=== PATIENT | female | born 1945 | race Caucasian/White ===

== ENCOUNTER 2020-07-08 06:21 | Outpatient (REF) | payer MEDICARE, MEDICAID, SELFPAY ==
[2020-07-08 07:29] LABS: MANUAL DIFF FLAG NO
[2020-07-08 07:39] LABS: Basophils Percent Auto 0.3 % (0-2); Eosinophils Absolute Auto 0.2 X10*3/uL (0.0-0.4); Eosinophils Percent Auto 3.6 % (0-4); Hematocrit 42.6 % (37-47); Hemoglobin 14.1 g/dl (12.0-16.0); Imm Gran Abs Auto 0.01 X10*3/uL (0.00-0.03); Imm Gran Pct Auto 0.2 % (0.0-0.4); Lymphocytes Absolute Auto 2.1 X10*3/uL (1.2-4.9); Lymphocytes Percent Auto 33.2 % (20-40); Mean Corpuscular HGB Conc 33.1 g/dl (31.0-35.0); Mean Corpuscular Hemoglobin 28.7 pg (27.0-33.0); Mean Corpuscular Volume 86.8 fL (80-98); Monocytes Absolute Auto 0.4 X10*3/uL (0.1-1.2); Monocytes Percent Auto 6.8 % (2-11); Neutrophils Absolute Auto 3.6 X10*3/uL (2.0-8.3); Neutrophils Percent Auto 55.9 % (45-73); Platelet Count 220 X10*3/uL (160-400); Red Blood Count 4.91 X10*6/uL (4.20-5.50); Red Cell Distribution Width 12.3 % (11.0-16.0); White Blood Count 6.4 X10*3/uL (4.8-10.8)
[2020-07-08 07:57] LABS: Glucose Urine UA NEG (NEG); Leukocyte Esterase Urine NEG (NEG); Nitrite Urine NEG (NEG); Urine Blood 2+ (NEG); Urine Ketones NEG (NEG); Urine Protein NEG (NEG-TRACE)
[2020-07-08 07:58] LABS: Appearance Urine CLEAR; Color Urine YELLOW
[2020-07-08 08:03] LABS: Squamous Epithelial Cell Urine 1+ /LPF; WBC Urine 0 /HPF (0-4)
[2020-07-08 08:16] LABS: Alanine Aminotransferase 18 U/L (0-31); Albumin Level 4.4 g/dL (3.5-5.0); Alkaline Phosphatase 63 U/L (39-117); Anion Gap 12 (12-20); Aspartate Amino Transferase 17 U/L (5-31); Bilirubin Total 0.6 mg/dL (0.0-1.0); Blood Urea Nitrogen 20 mg/dL (9-16); Calcium 9.4 mg/dL (8.4-10.2); Carbon Dioxide 29 mmol/L (22-29); Chloride 102 mmol/L (96-108); Cholesterol 172 mg/dL; Estimated Glomerular Filt Rate > 60; Glucose Fasting 99 mg/dL (60-99); HDL Cholesterol 45 mg/dL; LDL Cholesterol Calculated 99 mg/dl; Potassium 4.3 mmol/L (3.3-5.1); Sodium 139 mmol/L (135-145); Total Protein 6.7 g/dL (6.5-8.0); Triglycerides 141 mg/dL
[2020-07-08 08:52] LABS: Thyroid Stimulating Hormone 2.67 uIU/mL (0.32-4.0)
== END 2020-07-08 06:22 | disposition home or self-care (01) ==
LOC: HO.LAB 06:21
PROVIDERS: PCP Internal Medicine; Visit Provider Internal Medicine
DX: I10 Essential (primary) hypertension (principal); M81.0 Age-related osteoporosis without current pathological fracture; E78.5 Hyperlipidemia, unspecified
CPT/HCPCS: 36415; 80053; 80061; 81001; 84443; 85025

== ENCOUNTER 2020-09-24 10:59 | Outpatient (REF) | payer MEDICARE, MEDICAID, SELFPAY ==
--- NOTE | ~2020-09-24 | XR_ITS ---
EXAMINATION: XR HAND, RIGHT CLINICAL INFORMATION: Superficial foreign body of unspecified finger COMPARISON: None TECHNIQUE: PA, lateral, and oblique views of the right hand. FINDINGS: There is no visible acute fracture, dislocation or subluxation seen. No radiopaque foreign body seen. There is small circumferential sclerotic density with central lucency in the distal ulna. Question normal variation versus intraosseous Dale's abscess or lipoma. There are no previous exam available for comparison. XR/XR hand RT min 3V IMPRESSION: No acute fracture or dislocation. No radiopaque foreign body seen. Small sclerotic round lesion in the distal ulna, question normal variation, intraosseous Dale's abscess or intraosseous lipoma.
== END 2020-09-24 11:00 | disposition home or self-care (01) ==
LOC: HO.HMGCLDS 10:59
PROVIDERS: PCP Internal Medicine; Visit Provider Nurse Practitioner Family
DX: S60.450A Superficial foreign body of right index finger, initial encounter (principal); X58.XXXA Exposure to other specified factors, initial encounter; Y93.9 Activity, unspecified; Y92.9 Unspecified place or not applicable; Y99.8 Other external cause status
CPT/HCPCS: 73130

== ENCOUNTER 2020-11-21 16:07 | Emergency (ER) | payer OTHER, SELFPAY ==
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
[2020-11-21 16:40] VITALS: BP 140/90; BP 170/78; PULSE 76; PULSE 86; RESP 18; TEMP 36.7; O2SAT 96; O2SAT 98; BMI 20.7
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
[2020-11-21] MEDS: Acetaminophen 325 MG TABLET 650 MG PO (19:09)
== END 2020-11-21 19:16 | disposition home or self-care (01) ==
PROVIDERS: Emergency Provider Internal Medicine; PCP Internal Medicine
DX: S16.1XXA Strain of muscle, fascia and tendon at neck level, initial encounter (principal); I10 Essential (primary) hypertension; Z86.73 Personal history of transient ischemic attack (TIA), and cerebral infarction without residual deficits; Z79.82 Long term (current) use of aspirin; Z79.899 Other long term (current) drug therapy; V89.2XXA Person injured in unspecified motor-vehicle accident, traffic, initial encounter; Y93.9 Activity, unspecified; Y92.410 Unspecified street and highway as the place of occurrence of the external cause; Y99.9 Unspecified external cause status
CPT/HCPCS: 71046; 72125; 99283; 99284

== ENCOUNTER 2021-01-14 08:50 | Outpatient (REF) | payer OTHER, MEDICARE, MEDICAID, SELFPAY ==
--- NOTE | ~2021-01-14 | MM_ITS ---
EXAMINATION: MM SCREENING DIGITAL BREAST TOMOSYNTHESIS, BILATERAL CLINICAL INFORMATION: Screening. Asymptomatic. The lifetime risk of breast cancer based on the Tyrer-Cuzick Model is 7%. COMPARISON: Mammography: 01/09/2020, 01/03/2019, 09/09/2017 TECHNIQUE: Digital breast tomosynthesis is performed in both the craniocaudal and mediolateral oblique views along with computer-aided detection (CAD). Synthesized 2D images are generated from the tomosynthesis. FINDINGS: There are scattered areas of fibroglandular density (ACR BI-RADS breast composition Category b). There are no significant masses, abnormal calcifications, or other abnormalities. No developing density. No significant changes. The axilla and skin contours are unremarkable. MM/MM tomosynthesis screening BI IMPRESSION: No mammographic evidence of malignancy. ASSESSMENT: BI-RADS 1: Negative RECOMMENDATION: Routine annual mammography screening. This patient's information was entered into a reminder system with a target due date for their next mammogram.
== END 2021-01-14 08:51 | disposition home or self-care (01) ==
LOC: HO.MAMMO 08:50
PROVIDERS: Visit Provider Internal Medicine
DX: Z12.31 Encounter for screening mammogram for malignant neoplasm of breast (principal)
CPT/HCPCS: 77063; 77067

== ENCOUNTER 2021-01-16 06:03 | Outpatient (REF) | payer MEDICARE, MEDICAID, SELFPAY ==
[2021-01-16 10:22] LABS: Alanine Aminotransferase 15 U/L (0-31); Albumin Level 4.4 g/dL (3.5-5.0); Alkaline Phosphatase 73 U/L (39-117); Anion Gap 11 (12-20); Aspartate Amino Transferase 17 U/L (5-31); Bilirubin Total 0.9 mg/dL (0.0-1.0); Blood Urea Nitrogen 16 mg/dL (9-16); Carbon Dioxide 27 mmol/L (22-29); Chloride 106 mmol/L (96-108); Cholesterol 157 mg/dL; Estimated Glomerular Filt Rate > 60; Glucose Fasting 97 mg/dL (60-99); HDL Cholesterol 45 mg/dL; LDL Cholesterol Calculated 88 mg/dl; Potassium 4.2 mmol/L (3.3-5.1); Sodium 140 mmol/L (135-145); Total Protein 6.7 g/dL (6.5-8.0); Triglycerides 120 mg/dL
[2021-01-16 10:41] LABS: Vitamin D 25-OH Total 40.7 ng/mL (>30)
== END 2021-01-16 06:04 | disposition home or self-care (01) ==
LOC: HO.LAB 06:03
PROVIDERS: PCP Internal Medicine; Visit Provider Internal Medicine
DX: I10 Essential (primary) hypertension (principal); E78.5 Hyperlipidemia, unspecified; M81.0 Age-related osteoporosis without current pathological fracture
CPT/HCPCS: 36415; 80053; 80061; 82306

== ENCOUNTER 2021-02-04 14:00 | Outpatient (RCR) | payer OTHER, MEDICARE, MEDICAID, SELFPAY ==
--- NOTE | 2021-01-10 16:22 | MHC.PT.EP ---
[facility] [place] Office [place] Office [place] Office [address] [phone] F: [phone] F: [phone] F: [phone] F: [phone] Physical Therapy Plan of Care Date of Evaluation: Date of Surgery: N/A Diagnosis: Cervicalgia Neck Pain Assessment: Pt is a 75yo F who presents to PT s/p [facility] on 11/21/20. She initially had increased neck pain but she reports some improvements over the past few weeks. She presents today with current impairments in discomfort, limited cervical spine ROM all planes, soft tissue restrictions and posture. She is limited functionally by turning her head and ADLs. She is an excellent candidate for skilled PT services in order to address current impairments and to facilitate return to PLOF. Frequency and Duration: The patient will be seen 1x/week, 4 weeks Short Term Goals: Pt will be I with HEP to promote self management of symptoms Pt will improve cervical rotation by 5 deg bilaterally [employer] Attendant Goals: Pt will demonstrate improved, pain-free ROM all planes throughout cervical spine Pt will perform all ADLs without pain or compensation Treatment Plan: Modalities to reduce pain, spasms and effusion. Manual therapy to restore motion and function. Therapeutic exercise to improve strength and flexibility. Neuromuscular re-education for posture and balance. Therapeutic activities to return to functional activities of daily living. Electronically signed by: Andra Fagan, PT, DPT Please sign and return to therapist. Thank you for your referral.
--- NOTE | 2021-02-13 10:24 | MHC.PT.DC ---
[facility] [place] Office [place] Office [place] Office [address] [place] [address] [phone] F: [phone] F: [phone] F: [phone] F: [phone] Physical Therapy Discharge Report Diagnosis: Cervicalgia Neck Pain Date of Surgery: N/A Date of Evaluation: 01/10/21 Date of Discharge: 02/13/21 Treatments to Date: 4 Cancellations to Date: No Shows to Date: Discharge Status: Achieved Goals Improved Function Independent with HEP Discharge Summary: Pt last PT visit was 02/04/21. Pt made excellent progress since SOC and met her STGs and her LTGs. At last visit she had no pain and improved her ROM in all planes throughout cervical spine. She is able to perform ADLs without compensation. She is I with HEP and feels confident transitioning to HEP. Provided pt with printed, updated HEP and RTB on her last visit. Pt reported no further questions or concerns for PT. Pt is being D/C from skilled PT services at this time. Electronically signed by: Andra Fagan, PT, DPT Please sign and return to therapist. Thank you for your referral.
== END 2021-02-13 10:25 | disposition home or self-care (01) ==
LOC: HO.PT 14:00
PROVIDERS: PCP Internal Medicine; Visit Provider Internal Medicine
DX: M54.2 Cervicalgia (principal)
CPT/HCPCS: 97110; 97150; 97161; 97530

== ENCOUNTER → 2021-07-10 08:57 | Outpatient (BNVA) | payer MEDICARE, MEDICAID, SELFPAY | PROVIDERS: PCP Internal Medicine; Referring Provider Internal Medicine; Visit Provider Physician Assistant | DX: K63.5 Polyp of colon (principal) | CPT/HCPCS: 99212 ==

== ENCOUNTER 2022-01-15 08:32 | Day surgery (SDC) | payer OTHER, SELFPAY ==
--- NOTE | 2022-01-14 11:58 | P.CONAN_ITS ---
Documented by User: Donna Landry NP 01/14/22 11:58 HPI - Anesthesia Eval Consult details Narrative: 76yo F for Colonoscopy PMFSH Active Problems Active Problems: All Active Problems (Updated 07/10/21 @ 09:58 by Ericka Hyman PA-C) Colon polyps (Acute) Annual physical exam (Acute) Neck pain (Acute) Foreign body finger (Acute) Osteoporosis (Acute) Hyperlipidemia (Acute) HTN (hypertension) (Acute) Past Medical History Medical History Annual physical exam Colon polyps Hemorrhagic stroke HTN (hypertension) Hyperlipidemia Neck pain Osteoporosis Family History Family History Father Heart problem Mother Hypertension Stroke Colon cancer Sister Breast cancer Maternal Grandfather Colon cancer Surgical History Surgical History Hx of colonoscopy Hx of tonsillectomy Social History Social History Housing: House Alcohol intake: never Patient Tobacco Use Status: Never used Tobacco e-Cigarette/Vaping Use: Never Used Use of substances other than those prescribed or required for medical reasons: No Are you DNR?: No Advance Directives: No Advance Directives Information Provided: Yes Current occupational status: retired [employer] Allergies Allergy/AdvReac Type Severity Reaction Status Date / Time Penicillins [PENICILLINS] Allergy Intermediate HIVES Verified 07/22/21 10:01 Sulfa (Sulfonamide Allergy Intermediate HIVES Verified 07/22/21 10:01 Antibiotics) [SULFA (SULFONAMIDE ANTIBIOTICS)] Home Medications Medication Instructions Recorded Confirmed Last Taken Type aspirin 81 mg tablet,delayed 81 mg PO DAILY 07/16/20 07/22/21 Unknown History release calcium carbonate 600 mg-vitamin tab PO 07/16/20 07/22/21 Unknown History D3 10 mcg (400 unit) chewable tablet (Calcium 600 with Vitamin D3) folic acid 1 mg tablet 1 mg PO DAILY 07/16/20 07/22/21 Unknown History Exam Exam Date and Time: January 14, 2022 115 Assessment and Plan Assessment Anesthesia Assessment: Chart Reviewed Documented by User: Leopoldo White MD 01/15/22 10:12 [facility] Past Medical History Medical History Annual physical exam Colon polyps Hemorrhagic stroke HTN (hypertension) Hyperlipidemia Neck pain Osteoporosis Family History Family History Father Heart problem Mother Hypertension Stroke Colon cancer Sister Breast cancer Maternal Grandfather Colon cancer Family history of problems with anesthesia: No Surgical History Surgical History Hx of colonoscopy Hx of tonsillectomy History of Problems with Anesthesia: No Social History Social History Housing: House Alcohol intake: never Patient Tobacco Use Status: Never used Tobacco e-Cigarette/Vaping Use: Never Used Use of substances other than those prescribed or required for medical reasons: No Are you DNR?: No Advance Directives: No Advance Directives Information Provided: Yes Current occupational status: retired Meds Allergies Allergy/AdvReac Type Severity Reaction Status Date / Time Penicillins [PENICILLINS] Allergy Intermediate HIVES Verified 07/22/21 10:01 Sulfa (Sulfonamide Allergy Intermediate HIVES Verified 07/22/21 10:01 Antibiotics) [SULFA (SULFONAMIDE ANTIBIOTICS)] Home Medications Medication Instructions Recorded Confirmed Last Taken Type aspirin 81 mg tablet,delayed 81 mg PO DAILY 07/16/20 07/22/21 Unknown History release calcium carbonate 600 mg-vitamin tab PO 07/16/20 07/22/21 Unknown History D3 10 mcg (400 unit) chewable tablet (Calcium 600 with Vitamin D3) folic acid 1 mg tablet 1 mg PO DAILY 07/16/20 07/22/21 Unknown History Exam Airway Mallampati Class: II TM Dist: >3cm Neck ROM: Full Partial: Upper Heart: rrr Lungs: clear Assessment and Plan Final Anesthetic Review Family History of Problems with Anesthesia: No History of Problems with Anesthesia: No NPO: Yes ASA Class: III Final Preanesthetic Review: No Changes in Pt Med Stat, Meds/Allgs Chart Reviewed, Consent Obtained/Reviewed and Anes Risks/Benef Reviewed Patient Risk: Intermediate Procedure Risk: Low Anesthetic Plan Anesthetic Plan: MAC: Disposition: Standard PACU
[2022-01-15 09:16] VITALS: BP 183/73; PULSE 75; RESP 16; TEMP 36.4; O2SAT 98; BMI 19.8
--- NOTE | 2022-01-15 09:24 | P.HPSUR_ITS ---
Pre-Procedural Eval Section A Date of Service: 01/15/22 Section B Chief Complaint: screening Relevant Family History (Specify if Yes): Yes Relevant Social History: None Present Medications: see Short Stay Collaborative assessment Medical History: Significant History (Colon polyps Hemorrhagic stroke HTN (hypertension) Hyperlipidemia Neck pain Osteoporosis) History of Previous Operations: Relevant previous surgery/procedure and date(s) (Colon polyps Hemorrhagic stroke HTN (hypertension) Hyperlipidemia Neck pain Osteoporosis) Allergies: Allergies Allergy/AdvReac Type Severity Reaction Status Date / Time Penicillins [PENICILLINS] Allergy Intermediate HIVES Verified 07/22/21 10:01 Sulfa (Sulfonamide Allergy Intermediate HIVES Verified 07/22/21 10:01 Antibiotics) [SULFA (SULFONAMIDE ANTIBIOTICS)] Review of Systems Sugical H&P ROS: Negative: Constitution, Cardiovascular, Respiratory, Neurological, Psychiatric, Hem-Onc, Allergic/Immunologic, Gastrointestinal, Genitourinary, Musculoskeletal, Integumentary, Endocrine and Eyes/Ears/Nose /Throat Exam Surgical H&P Exam: Normal: HEENT, Normal: Heart, Normal: Lungs, Normal: Extremities, Normal: Abdomen, Normal: Skin and Normal: Neurological Plan Diagnosis/Plan: Unchanged I have reviewed the history and physical and performed a pertinent physical examination on my patient. No changes have occurred unless specified.
[2022-01-15] MEDS: Lactated Ringers 1,000 ML 100 ML IVCONT (09:35)
--- NOTE | 2022-01-15 10:41 | P.OP_ITS ---
Operative Note Operative Note Date of Service: 01/15/22 Narrative: Operative Information Procedure Description: Colonoscopy Indication: FH of CRC, Anesthesia: MAC COLONOSCOPY Instrument: Olympus variable stiffness pediatric scope 190L Colonoscopy Monitoring: Vital signs and clinical assessment, continuous EKG monitoring, Pulse oximetry, Carbon Dioxide monitoring and blood pressure monitoring were done throughout the procedure. Colon withdrawal time was 9 minutes. Procedure: The patient was placed in the left lateral decubitis position and pre-procedure medications were administered. After a digital rectal examination of the ano-rectum, the video colonoscope was inserted into the rectum and advanced through the colon to the cecum/TI. The colonoscope was slowly withdrawn in a retrograde panoramic fashion and the colon mucosa was carefully examined including a retroflexed view of the rectum. Findings and interventions are described below. Procedure Difficulty: easy Findings: Terminal Ileum-normal Cecum:normal Ascending Colon: normal Transverse Colon -normal Descending Colon:normal Sigmoid Colon: mild diverticulosis Rectum: Retroflexion with small internal hemorrhoids, grade I Anorectum - normal Colon preparation: [place] Bowel Preparation Scale Right colon; 3 Transverse colon: 3 Left colon; 3 (0 = Unprepared colon segment with mucosa not seen due to solid stool that cannot be cleared. 1 = Portion of mucosa of the colon segment seen, but other areas of the colon segment not well seen due to staining, residual stool and/or opaque liquid. 2 = Minor amount of residual staining, small fragments of stool and/or opaque liquid, but mucosa of colon segment seen well. 3 = Entire mucosa of colon segment seen well with no residual staining, small fragments of stool or opaque liquid) Impression and Post Procedure Diagnosis: internal hemorrhoids diverticular disease Plan: High fiber diet leaflet Avoid straining at stool, epsom salts and sitz bath, anusol supps or cream Repeat Colonoscopy in 5 years if health allows or earlier if clinically indicated Above findings were reviewed with the patient and relevant handouts were provided if indicated.
[2022-01-15 10:46] VITALS: BP 123/62; PULSE 77; RESP 16; TEMP 36.7; O2SAT 96
[2022-01-15 11:01] VITALS: BP 120/66; PULSE 77; RESP 16; TEMP 36.6; O2SAT 99
== END 2022-01-15 11:27 | disposition home or self-care (01) ==
PROVIDERS: PCP Internal Medicine; Visit Provider Internal Medicine Gastroenterology
PROC: 0DJD8ZZ Inspection of Lower Intestinal Tract, Via Natural or Artificial Opening Endoscopic (ICD-10-PCS; CPT 45378; principal; 2022-01-15 10:00)
DX: Z12.11 Encounter for screening for malignant neoplasm of colon (principal); Z80.0 Family history of malignant neoplasm of digestive organs; Z86.010 Personal history of colon polyps; K57.30 Diverticulosis of large intestine without perforation or abscess without bleeding; K64.0 First degree hemorrhoids; I69.898 Other sequelae of other cerebrovascular disease; H53.9 Unspecified visual disturbance; I10 Essential (primary) hypertension; E78.5 Hyperlipidemia, unspecified; M81.0 Age-related osteoporosis without current pathological fracture; M54.2 Cervicalgia; Z79.82 Long term (current) use of aspirin; Z79.899 Other long term (current) drug therapy; Z88.0 Allergy status to penicillin; Z88.2 Allergy status to sulfonamides
CPT/HCPCS: G0105

== ENCOUNTER 2022-01-16 08:49 | Outpatient (REF) | payer OTHER, SELFPAY ==
--- NOTE | ~2022-01-16 | MM_ITS ---
EXAMINATION: MM SCREENING DIGITAL BREAST TOMOSYNTHESIS, BILATERAL CLINICAL INFORMATION: Screening. Asymptomatic. Family history breast cancer, sister. The lifetime risk of breast cancer based on the Tyrer-Cuzick Model is 7%. COMPARISON: Mammography: 01/14/2021, 01/09/2020, 01/03/2019 TECHNIQUE: Digital breast tomosynthesis is performed in both the craniocaudal and mediolateral oblique views along with computer-aided detection (CAD). Synthesized 2D images are generated from the tomosynthesis. FINDINGS: There are scattered areas of fibroglandular density (ACR BI-RADS breast composition Category b). There are no significant masses, abnormal calcifications, or other abnormalities. Parenchymal pattern is similar to prior studies. There is no developing density or architectural abnormality. The axilla and skin contours are unremarkable. No significant changes. MM/MM tomosynthesis screening BI IMPRESSION: No mammographic evidence of malignancy. ASSESSMENT: BI-RADS 1: Negative RECOMMENDATION: Routine annual mammography screening. This patient's information was entered into a reminder system with a target due date for their next mammogram.
== END 2022-01-16 08:50 | disposition home or self-care (01) ==
LOC: HO.MAMMO 08:49
PROVIDERS: Visit Provider Internal Medicine
DX: Z12.31 Encounter for screening mammogram for malignant neoplasm of breast (principal)
CPT/HCPCS: 77063; 77067

== ENCOUNTER → 2022-02-03 09:21 | Outpatient (BNVA) | payer OTHER, SELFPAY | PROVIDERS: PCP Internal Medicine; Referring Provider Internal Medicine; Visit Provider Physician Assistant | DX: K63.5 Polyp of colon (principal); K64.9 Unspecified hemorrhoids; K57.30 Diverticulosis of large intestine without perforation or abscess without bleeding; Z80.0 Family history of malignant neoplasm of digestive organs | CPT/HCPCS: 99212 ==

== ENCOUNTER 2022-06-06 07:01 | Outpatient (REF) | payer OTHER, SELFPAY ==
[2022-06-06 08:06] LABS: Hemoglobin 14.2 g/dl (12.0-16.0); Mean Corpuscular HGB Conc 33.8 g/dl (31.0-35.0); Mean Corpuscular Hemoglobin 29.2 pg (27.0-33.0); Mean Corpuscular Volume 86.2 fL (80.0-98.0); Mean Platelet Volume 10.3 fL (9.4-12.3); Platelet Count 201 X10*3/uL (160-400); Red Blood Count 4.87 X10*6/uL (4.20-5.50); Red Cell Distribution Width 12.4 % (11.0-16.0); White Blood Count 5.9 X10*3/uL (4.8-10.8)
[2022-06-06 08:18] LABS: Appearance Urine Clear; Color Urine Yellow; Glucose Urine UA Negative (Negative); Leukocyte Esterase Urine Negative (Negative); Nitrite Urine Negative (Negative); PH 6.5 (5.0-9.0); UMIC TRIGGER UACC YES; Urine Blood Small (1+) (Negative); Urine Ketones Negative (Negative); Urine Protein Negative (Neg-Trace)
[2022-06-06 09:04] LABS: Alanine Aminotransferase 19 U/L (0-31); Albumin Level 4.2 g/dL (3.5-5.0); Alkaline Phosphatase 69 U/L (39-117); Anion Gap 10 (12-20); Aspartate Amino Transferase 19 U/L (5-31); Bilirubin Total 0.6 mg/dL (0.0-1.0); Blood Urea Nitrogen 18 mg/dL (9-16); Calcium 9.5 mg/dL (8.4-10.2); Carbon Dioxide 27 mmol/L (22-29); Chloride 106 mmol/L (96-108); Cholesterol 174 mg/dL; Estimated Glomerular Filt Rate > 60; Glucose Fasting 89 mg/dL (60-99); HDL Cholesterol 40 mg/dL; LDL Cholesterol Calculated 106 mg/dl; Potassium 4.3 mmol/L (3.3-5.1); Sodium 139 mmol/L (135-145); Total Protein 6.6 g/dL (6.5-8.0); Triglycerides 141 mg/dL
[2022-06-06 09:23] LABS: TSH reflex Free T4 2.73 uIU/mL (0.32-4.0); Vitamin D 25-OH Total 39.2 ng/mL (>30)
[2022-06-06 10:03] LABS: Bacteria Urine None Seen (None Seen); Hyaline Casts Urine 0-2 /LPF (0-2); Squamous Epithelial Cell Urine 0-2 /HPF (0-2); WBC Urine 0-5 /HPF (0-5)
== END 2022-06-06 07:02 | disposition home or self-care (01) ==
LOC: HO.LAB 07:01
PROVIDERS: PCP Internal Medicine; Visit Provider Internal Medicine
DX: Z00.00 Encounter for general adult medical examination without abnormal findings (principal); E78.5 Hyperlipidemia, unspecified; I10 Essential (primary) hypertension
CPT/HCPCS: 36415; 80053; 80061; 81001; 82306; 84443; 85027

== ENCOUNTER 2022-12-14 08:28 | Outpatient (AMB) | payer OTHER, SELFPAY ==
--- NOTE | 2022-12-14 08:34 | MHC.PC.OV ---
Vital Signs 12/14/22 08:35 Height 5 ft 1 in Weight 102 lb BMI 19.3 BP 120/66 Blood Pressure Location Lt brachial Position Sitting Pulse 64 Pulse Source Pulse Oximeter Pulse Oximetry (%) 98 Oxygen Delivery Method Room Air Intake Visit Reasons: 6m follow up Intake Note: Pt is here today for 6 months follow up visit Allergies Penicillins [PENICILLINS] Allergy (Intermediate, Verified 12/14/22 08:36) HIVES Sulfa (Sulfonamide Antibiotics) [SULFA (SULFONAMIDE ANTIBIOTICS)] Allergy (Intermediate, Verified 12/14/22 08:36) HIVES Medication List - Last Reconciled 12/14/22 by Melly Ferreira MD aspirin 81 mg PO DAILY atenolol 25 mg (1/2 x 50 mg) PO BID calcium carbonate-vitamin D3 600 mg-10 mcg (400 unit) (Calcium 600 with Vitamin D3) tabs PO folic acid 1 mg PO DAILY simvastatin 10 mg PO BEDTIME Tobacco use date assessed: 12/14/22 Fall risk assessment: No Falls in past year Last assessed Fall Risk: 12/14/22 Dental Screening Dental Screen Date: 12/14/22 Did you have a dental visit in the last 12 months?: Yes Did you have a dental problem in the last 6 months where you did not have access to dental care?: No Was dental information given to patient?: Patient has dentist HPI 6m follow up HPI Details Pt presents for f/u HTN, hyperlipid, stable on meds. PFSH Medical History Annual physical exam Colon polyps Hemorrhagic stroke HTN (hypertension) Hyperlipidemia Neck pain Osteoporosis Surgical History Hx of colonoscopy Hx of tonsillectomy Family History Father Heart problem Mother Hypertension Stroke Colon cancer Sister Breast cancer Maternal Grandfather Colon cancer Social History Housing: House Alcohol intake: never Patient Tobacco Use Status: Never used Tobacco e-Cigarette/Vaping Use: Never Used Current occupational status: retired Cognitive needs: No Hearing needs: No Vision needs: Yes Questionnaire Thrive Questionnaire Date Thrive assessed: 06/18/22 AUDIT C Alcohol Use Questionnaire (AUDIT-C) 1. How often do you have a drink containing alcohol?: Never 3. How often do you have six or more drinks on one occasion?: Never Total Score: 0 YAN-7 AMB Questionnaire YAN-7 Date YAN - 7 assessed: 06/18/22 Source: Developed by Drs. Federico Vale, Debra Good, Hill Hunter and colleagues, with an educational vamsi from [employer]. Review of Systems Const All systems reviewed & are unremarkable except as noted in HPI and below Reports no additional complaints Eyes Reports no additional complaints ENT Reports no additional complaints Card Reports no additional complaints Resp Reports no additional complaints GI Reports no additional complaints Reports no additional complaints Physical exam (Primary Care) Vital Signs: Last Vital Signs Pulse 64 12/14/22 08:35 BP 120/66 12/14/22 08:35 Pulse Ox 98 12/14/22 08:35 Oxygen Delivery Method Room Air 12/14/22 08:35 BMI result Body Mass Index 19.3 Tobacco/Smoking Status: Tobacco use Status Tobacco use date assessed 12/14/22 12/14/22 08:39 Patient Tobacco Use Status Never used Tobacco 12/14/22 08:36 e-Cigarette/Vaping Use Never Used 12/14/22 08:36 Thrive Assessment: Date of Thrive Assessment Date Thrive assessed 06/18/22 12/14/22 08:36 Const General: no acute distress HENMT Head: Yes normal to inspection Mouth: Normal oral and palatal mucosa present Eyes General: appearance normal, both eyes and all related structures Neck Neck: Yes no lymphadenopathy and Yes supple Resp Effort & Inspection: normal respiratory effort Auscultation: clear to auscultation bilaterally Cardio Rhythm: regular rhythm Heart sounds: S1 normal heart sound present and S2 normal heart sound present GI Inspection: Yes normal to inspection Palpation (GI): Soft to palpation Auscultation: normal bowel sounds Assessment and Plan Assessment & Plan (1) Osteoporosis: Comment: DEXA in 09/2017, not better after 2years of Prolia, started Reclast 2018 DEXA 01/2020, severe body aches,declined 07/2020 Code(s): M81.0 - Age-related osteoporosis without current pathological fracture Plan: cont vit D and exercise (2) Hyperlipidemia: Code(s): E78.5 - Hyperlipidemia, unspecified Plan: cont statin (3) HTN (hypertension): Code(s): I10 - Essential (primary) hypertension Plan: cont med Orders: Orders Comprehensive Meredith. Panel Fast 6 Months E78.5 - Hyperlipidemia, unspecified, I10 - Essential (primary) hypertension, M81.0 - Age-related osteoporosis without current pathological fracture Lipid Panel 6 Months E78.5 - Hyperlipidemia, unspecified, I10 - Essential (primary) hypertension, M81.0 - Age-related osteoporosis without current pathological fracture TSH reflex Free T4 6 Months E78.5 - Hyperlipidemia, unspecified, I10 - Essential (primary) hypertension, M81.0 - Age-related osteoporosis without current pathological fracture Complete Blood Count Auto Diff 6 Months E78.5 - Hyperlipidemia, unspecified, I10 - Essential (primary) hypertension, M81.0 - Age-related osteoporosis without current pathological fracture Medications: Refilled simvastatin 10 mg PO BEDTIME 90 tabs 3RF Coding Level of Care Code Est Pt Level 3 (28978) Diagnoses Osteoporosis M81.0 Hyperlipidemia E78.5 HTN (hypertension) I10
[2022-12-14 08:35] VITALS: BP 120/66; PULSE 64; O2SAT 98; BMI 19.3
== END 2022-12-14 10:06 | disposition home or self-care (01) ==
PROVIDERS: Visit Provider Internal Medicine
DX: M81.0 Age-related osteoporosis without current pathological fracture (principal); E78.5 Hyperlipidemia, unspecified; I10 Essential (primary) hypertension
CPT/HCPCS: 99213

== ENCOUNTER 2023-01-22 09:11 | Outpatient (REF) | payer OTHER, SELFPAY | END 2023-01-22 09:12 | disposition home or self-care (01) | LOC: HO.MAMMO 09:11 | PROVIDERS: PCP Internal Medicine; Visit Provider Internal Medicine | DX: Z12.31 Encounter for screening mammogram for malignant neoplasm of breast (principal) | CPT/HCPCS: 77063; 77067 ==

== ENCOUNTER → 2023-01-22 09:30 | Outpatient (BNV) | payer OTHER, SELFPAY | PROVIDERS: PCP Internal Medicine; Visit Provider Radiology Diagnostic Radiology | DX: Z12.31 Encounter for screening mammogram for malignant neoplasm of breast (principal) | CPT/HCPCS: 77063; 77067 ==

== ENCOUNTER 2023-06-16 06:37 | Outpatient (REF) | payer MEDICARE, MEDICAID, SELFPAY ==
[2023-06-16 06:51] LABS: MANUAL DIFF FLAG NO
[2023-06-16 07:04] LABS: Basophils Percent Auto 0.6 % (0-2); Eosinophils Absolute Auto 0.4 X10*3/uL (0.0-0.4); Eosinophils Percent Auto 6.7 % (0-4); Hematocrit 42.1 % (37.0-47.0); Hemoglobin 14.4 g/dl (12.0-16.0); Imm Gran Abs Auto 0.02 X10*3/uL (0.00-0.03); Imm Gran Pct Auto 0.3 % (0.0-0.4); Lymphocytes Absolute Auto 1.9 X10*3/uL (1.2-4.9); Lymphocytes Percent Auto 30.8 % (20-40); Mean Corpuscular HGB Conc 34.2 g/dl (31.0-35.0); Mean Corpuscular Hemoglobin 29.2 pg (27.0-33.0); Mean Corpuscular Volume 85.4 fL (80.0-98.0); Mean Platelet Volume 9.7 fL (9.4-12.3); Monocytes Absolute Auto 0.5 X10*3/uL (0.1-1.2); Monocytes Percent Auto 7.2 % (2-11); Neutrophils Absolute Auto 3.4 x10*3/uL (2.0-8.3); Neutrophils Percent Auto 54.4 % (45-73); Platelet Count 212 X10*3/uL (160-400); Red Blood Count 4.93 X10*6/uL (4.20-5.50); Red Cell Distribution Width 12.4 % (11.0-16.0); White Blood Count 6.3 X10*3/uL (4.8-10.8)
[2023-06-16 07:26] LABS: Alanine Aminotransferase 16 U/L (0-31); Albumin Level 4.3 g/dL (3.5-5.0); Alkaline Phosphatase 71 U/L (39-117); Anion Gap 13 (12-20); Aspartate Amino Transferase 18 U/L (5-31); Bilirubin Total 0.6 mg/dL (0.0-1.0); Blood Urea Nitrogen 19 mg/dL (9-16); Calcium 9.8 mg/dL (8.4-10.2); Carbon Dioxide 28 mmol/L (22-29); Chloride 105 mmol/L (96-108); Cholesterol 173 mg/dL (<200); Estimated Glomerular Filt Rate > 60; Glucose Fasting 98 mg/dL (60-99); HDL Cholesterol 51 mg/dL (>40); LDL Cholesterol Calculated 103 mg/dL (<100); Sodium 142 mmol/L (135-145); Total Protein 7.1 g/dL (6.5-8.0); Triglycerides 95 mg/dL (<150)
[2023-06-16 07:55] LABS: TSH reflex Free T4 2.18 uIU/mL (0.32-4.0)
== END 2023-06-16 06:38 | disposition home or self-care (01) ==
LOC: HO.LAB 06:37
PROVIDERS: PCP Internal Medicine; Visit Provider Internal Medicine
DX: E78.5 Hyperlipidemia, unspecified (principal); I10 Essential (primary) hypertension; M81.0 Age-related osteoporosis without current pathological fracture
CPT/HCPCS: 36415; 80053; 80061; 84443; 85025

== ENCOUNTER 2023-06-21 08:15 | Outpatient (AMB) | payer MEDICARE, MEDICAID, SELFPAY ==
[2023-06-21 08:27] VITALS: BP 142/76; PULSE 73; O2SAT 98
--- NOTE | 2023-06-21 08:27 | A.OFFPC_ITS ---
Vital Signs 06/21/23 08:27 Height 5 ft 1 in Weight 106 lb BMI 20.0 BP 142/76 H Blood Pressure Location Lt brachial Position Sitting Pulse 73 Pulse Source Pulse Oximeter Pulse Oximetry (%) 98 Oxygen Delivery Method Room Air Intake Visit Reasons: PE Intake Note: Pt is here today for a PE. Allergies Penicillins [PENICILLINS] Allergy (Intermediate, Verified 06/21/23 08:33) HIVES Sulfa (Sulfonamide Antibiotics) [SULFA (SULFONAMIDE ANTIBIOTICS)] Allergy (Intermediate, Verified 06/21/23 08:33) HIVES Medication List - Last Reconciled 06/21/23 by Melly Ferreira MD aspirin 81 mg PO DAILY atenolol 25 mg (1/2 x 50 mg) PO BID calcium carbonate-vitamin D3 600 mg-10 mcg (400 unit) (Calcium 600 with Vitamin D3) tabs PO folic acid 1 mg PO DAILY simvastatin 10 mg PO BEDTIME Tobacco use date assessed: 06/21/23 Fall risk assessment: No Falls in past year Last assessed Fall Risk: 06/21/23 Dental Screening Dental Screen Date: 06/21/23 Did you have a dental visit in the last 12 months?: Yes Did you have a dental problem in the last 6 months where you did not have access to dental care?: No Was dental information given to patient?: Patient has dentist HPI PE HPI Details Pt presents for PE. PFSH Medical History Colon polyps Annual physical exam Neck pain Hemorrhagic stroke Osteoporosis Hyperlipidemia HTN (hypertension) Surgical History Hx of tonsillectomy Hx of colonoscopy Family History Father Heart problem Mother Hypertension Stroke Colon cancer Sister Breast cancer Maternal Grandfather Colon cancer Social History Housing: House Alcohol intake: never Patient Tobacco Use Status: Never used Tobacco e-Cigarette/Vaping Use: Never Used Current occupational status: retired Cognitive needs: No Hearing needs: No Vision needs: Yes Questionnaire Thrive Questionnaire Date Thrive assessed: 06/18/22 AUDIT C Alcohol Use Questionnaire (AUDIT-C) 1. How often do you have a drink containing alcohol?: Never 3. How often do you have six or more drinks on one occasion?: Never Total Score: 0 YAN-7 AMB Questionnaire YAN-7 Date YAN - 7 assessed: 06/18/22 Source: Developed by Drs. Federico Vale, Debra Good, Hill Hunter and colleagues, with an educational vamsi from [employer] Review of Systems Const All systems reviewed & are unremarkable except as noted in HPI and below Reports no additional complaints Eyes Reports no additional complaints ENT Reports no additional complaints Card Reports no additional complaints Resp Reports no additional complaints GI Reports no additional complaints Reports no additional complaints Physical exam (Primary Care) Vital Signs: Last Vital Signs Pulse 73 06/21/23 08:27 BP 142/76 H 06/21/23 08:27 Pulse Ox 98 06/21/23 08:27 Oxygen Delivery Method Room Air 06/21/23 08:27 BMI result Body Mass Index 20.0 Tobacco/Smoking Status: Tobacco use Status Tobacco use date assessed 06/21/23 06/21/23 08:35 Patient Tobacco Use Status Never used Tobacco 06/21/23 08:35 e-Cigarette/Vaping Use Never Used 06/21/23 08:27 Thrive Assessment: Date of Thrive Assessment Date Thrive assessed 06/18/22 06/21/23 08:27 Const General: no acute distress HENMT Head: Yes normal to inspection Ears: hearing grossly normal bilaterally Face and sinus: Yes normal facial exam Mouth: Normal oral and palatal mucosa present Throat: Yes posterior oropharynx normal Eyes General: appearance normal, both eyes and all related structures Neck Neck: Yes no lymphadenopathy and Yes supple Resp Effort & Inspection: normal respiratory effort Auscultation: clear to auscultation bilaterally Cardio Rhythm: regular rhythm Heart sounds: S1 normal heart sound present and S2 normal heart sound present GI Inspection: Yes normal to inspection Palpation (GI): Soft to palpation Percussion: Yes normal to percussion Auscultation: normal bowel sounds Assessment and Plan Assessment & Plan (1) Microscopic hematuria: Comment: negative urological w/u 2017 Code(s): R31.29 - Other microscopic hematuria Plan: check UA and cytology (2) Annual physical exam: Code(s): Z00.00 - Encounter for general adult medical examination without abnormal findings Plan: Well-balanced diet regular physical activity discussed with the patient. She is up-to-date with the mammogram colonoscopy. (3) Osteoporosis: Comment: DEXA in 09/2017, not better after 2years of Prolia, started Reclast 2018 DEXA 01/2020, severe body aches,declined 07/2020 Code(s): M81.0 - Age-related osteoporosis without current pathological fracture Plan: Continue vitamin-D supplement, weight-bearing exercise discussed with the patient. She declined repeat DEXA (4) Hyperlipidemia: Code(s): E78.5 - Hyperlipidemia, unspecified Plan: Continue statin (5) HTN (hypertension): Code(s): I10 - Essential (primary) hypertension Plan: Blood pressure is elevated. Medication compliance, Low-sodium diet increase physical activity discussed with the patient. Patient will monitor her blood pressure at home and follow-up in 1 month. Orders: Orders UA w Microscopic Today R31.29 - Other microscopic hematuria Urine Cytology Today R31.29 - Other microscopic hematuria Coding Level of Care Code Est Pt Prev Care >65y(13601) Diagnoses Microscopic hematuria R31.29 Annual physical exam Z00.00 Osteoporosis M81.0 Hyperlipidemia E78.5 HTN (hypertension) I10
== END 2023-06-21 09:06 | disposition home or self-care (01) ==
PROVIDERS: Visit Provider Internal Medicine
DX: R31.29 Other microscopic hematuria (principal); Z00.00 Encounter for general adult medical examination without abnormal findings; M81.0 Age-related osteoporosis without current pathological fracture; E78.5 Hyperlipidemia, unspecified; I10 Essential (primary) hypertension
CPT/HCPCS: 99397

== ENCOUNTER 2023-06-21 09:08 | Outpatient (REF) | payer MEDICARE, MEDICAID, SELFPAY ==
[2023-06-21 11:33] LABS: Urine Cytology See Pathology rpt
[2023-06-21 11:44] LABS: Appearance Urine Clear; Color Urine Yellow; Glucose Urine UA Negative (Negative); Leukocyte Esterase Urine Negative (Negative); Nitrite Urine Negative (Negative); Specific Gravity - Urine <= 1.005 (1.005-1.025); UMIC TRIGGER UA YES; Urine Blood Trace (Negative); Urine Ketones Negative (Negative); Urine Protein Negative (Neg-Trace)
[2023-06-21 11:50] LABS: Bacteria Urine None Seen (None Seen); Hyaline Casts Urine 0-2 /LPF (0-2); RBC Urine 0-2 /HPF (0-2); Squamous Epithelial Cell Urine 0-2 /HPF (0-2); WBC Urine 0-5 /HPF (0-5)
== END 2023-06-21 09:09 | disposition home or self-care (01) ==
LOC: HO.HMGCLDS 09:08
PROVIDERS: PCP Internal Medicine; Visit Provider Internal Medicine
DX: R31.29 Other microscopic hematuria (principal)
CPT/HCPCS: 81001; 88112

== ENCOUNTER 2023-07-23 11:02 | Outpatient (AMB) | payer MEDICARE, MEDICAID, SELFPAY ==
[2023-07-23 11:07] VITALS: BP 136/74; PULSE 60; O2SAT 95
--- NOTE | 2023-07-23 11:07 | A.OFFPC_ITS ---
Vital Signs 07/23/23 11:07 Height 5 ft 1 in Weight 106 lb BMI 20.0 BP 136/74 Blood Pressure Location Lt brachial Position Sitting Pulse 60 Pulse Source Pulse Oximeter Pulse Oximetry (%) 95 Oxygen Delivery Method Room Air Intake Visit Reasons: 1M F/U Labs Intake Note: Pt is here today for 1 month follow up visit. Allergies Penicillins [PENICILLINS] Allergy (Intermediate, Verified 07/23/23 11:08) HIVES Sulfa (Sulfonamide Antibiotics) [SULFA (SULFONAMIDE ANTIBIOTICS)] Allergy (Intermediate, Verified 07/23/23 11:08) HIVES Medication List - Last Reconciled 07/23/23 by Melly Ferreira MD aspirin 81 mg PO DAILY atenolol 25 mg (1/2 x 50 mg) PO BID calcium carbonate-vitamin D3 600 mg-10 mcg (400 unit) (Calcium 600 with Vitamin D3) tabs PO folic acid 1 mg PO DAILY simvastatin 10 mg PO BEDTIME Tobacco use date assessed: 06/21/23 HPI 1M F/U Labs HPI Details Patient presents for the follow-up on hypertension she has been monitoring blood pressure at home with the readings between 135/80 to 110/70. Patient has been compliant taking atenolol twice a day. The patient denies headache chest pain or shortness of breath she has been following low salt diet and walking daily for at least a mile. [facility] [place] Medical History Colon polyps Annual physical exam Neck pain Hemorrhagic stroke Osteoporosis Hyperlipidemia HTN (hypertension) Surgical History Hx of tonsillectomy Hx of colonoscopy Family History Father Heart problem Mother Hypertension Stroke Colon cancer Sister Breast cancer Maternal Grandfather Colon cancer Social History Housing: House Alcohol intake: never Patient Tobacco Use Status: Never used Tobacco e-Cigarette/Vaping Use: Never Used Current occupational status: retired Cognitive needs: No Hearing needs: No Vision needs: Yes Questionnaire Thrive Questionnaire Date Thrive assessed: 06/18/22 YAN-7 AMB Questionnaire YAN-7 Date YAN - 7 assessed: 06/18/22 Source: Developed by Drs. Federico Vale, Debra Good, Hill Hunter and colleagues, with an educational vamsi from [facility]. Review of Systems Const All systems reviewed & are unremarkable except as noted in HPI and below Eyes Reports no additional complaints ENT Reports no additional complaints Card Reports no additional complaints Resp Reports no additional complaints GI Reports no additional complaints Reports no additional complaints Physical exam (Primary Care) Vital Signs: Last Vital Signs Pulse 60 07/23/23 11:07 BP 136/74 07/23/23 11:07 Pulse Ox 95 07/23/23 11:07 Oxygen Delivery Method Room Air 07/23/23 11:07 BMI result Body Mass Index 20.0 Tobacco/Smoking Status: Tobacco use Status Tobacco use date assessed 06/21/23 07/23/23 11:11 Patient Tobacco Use Status Never used Tobacco 07/23/23 11:11 e-Cigarette/Vaping Use Never Used 07/23/23 11:11 Thrive Assessment: Date of Thrive Assessment Date Thrive assessed 06/18/22 07/23/23 11:11 Const General: no acute distress HENMT Mouth: Normal oral and palatal mucosa present Eyes General: appearance normal, both eyes and all related structures Resp Effort & Inspection: normal respiratory effort Auscultation: clear to auscultation bilaterally Cardio Rhythm: regular rhythm Heart sounds: S1 normal heart sound present and S2 normal heart sound present Assessment and Plan Assessment & Plan (1) Hyperlipidemia: Code(s): E78.5 - Hyperlipidemia, unspecified Plan: Continue simvastatin (2) HTN (hypertension): Code(s): I10 - Essential (primary) hypertension Plan: Continue current medication low-sodium diet regular exercise , follow-up in 3 months Coding Level of Care Code Est Pt Level 3 (46376) Diagnoses Hyperlipidemia E78.5 HTN (hypertension) I10
== END 2023-07-23 12:27 | disposition home or self-care (01) ==
PROVIDERS: PCP Internal Medicine; Visit Provider Internal Medicine
DX: E78.5 Hyperlipidemia, unspecified (principal); I10 Essential (primary) hypertension
CPT/HCPCS: 99213

== ENCOUNTER 2023-12-07 11:28 | Outpatient (AMB) | payer MEDICARE, MEDICAID, SELFPAY ==
[2023-12-07 11:45] VITALS: BP 124/68; PULSE 61; O2SAT 97; BMI 19.6
--- NOTE | 2023-12-07 11:45 | A.OFFPC_ITS ---
Vital Signs 12/07/23 11:45 Height 5 ft 1 in Weight 104 lb BMI 19.6 BP 124/68 Blood Pressure Location Lt brachial Position Sitting Pulse 61 Pulse Source Pulse Oximeter Pulse Oximetry (%) 97 Oxygen Delivery Method Room Air Intake Visit Reasons: 3M F/U rescheduled Intake Note: Pt is here today for 3 months follow up visit. Allergies Penicillins [PENICILLINS] Allergy (Intermediate, Verified 12/07/23 11:54) HIVES Sulfa (Sulfonamide Antibiotics) [SULFA (SULFONAMIDE ANTIBIOTICS)] Allergy (Intermediate, Verified 12/07/23 11:54) HIVES Medication List - Last Reconciled 12/07/23 by Melly Ferreira MD aspirin 81 mg PO DAILY atenolol 25 mg (1/2 x 50 mg) PO BID calcium carbonate-vitamin D3 600 mg-10 mcg (400 unit) (Calcium 600 with Vitamin D3) tabs PO folic acid 1 mg PO DAILY simvastatin 10 mg PO BEDTIME Tobacco use date assessed: 12/07/23 Fall risk assessment: No Falls in past year Last assessed Fall Risk: 12/07/23 Dental Screening Dental Screen Date: 12/07/23 Did you have a dental visit in the last 12 months?: Yes Did you have a dental problem in the last 6 months where you did not have access to dental care?: No Was dental information given to patient?: Patient has dentist HPI 3M F/U rescheduled HPI Details Pt presents for follow-up on hypertension hyperlipidemia stable on current medications. [facility] Medical History Colon polyps Annual physical exam Neck pain Hemorrhagic stroke Osteoporosis Hyperlipidemia HTN (hypertension) Surgical History Hx of tonsillectomy Hx of colonoscopy Family History Father Heart problem Mother Hypertension Stroke Colon cancer Sister Breast cancer Maternal Grandfather Colon cancer Social History Housing: House Alcohol intake: never Patient Tobacco Use Status: Never used Tobacco e-Cigarette/Vaping Use: Never Used service: No Current occupational status: retired Cognitive needs: No Hearing needs: No Vision needs: Yes Questionnaire PHQ-9 Over the last 2 weeks, how often have you been bothered by any of the following problems? 1. Little interest or pleasure in doing things: not at all 2. Feeling down, depressed, or hopeless: not at all 3. Trouble falling or staying asleep, or sleeping too much: not at all 4. Feeling tired or having little energy: not at all 5. Poor appetite or overeating: not at all 6. Feeling bad about yourself - or that you are a failure or have let yourself or your family down: not at all 7. Trouble concentrating on things, such as reading the newspaper or watching television: not at all 8. Moving or speaking so slowly that other people could have noticed. Or the opposite - being so fidgety or restless that you have been moving around a lot more than usual: not at all 9. Thoughts that you would be better off or of hurting yourself in some way: not at all Total score: 0 Depression Screening Interpretation: Negative Depression Screening Done: Yes Source: Developed by Drs. Federico Vale, Debra Good, Hill Hunter and colleagues, with an educational vamsi from [employer]. Thrive Questionnaire Date Thrive assessed: 12/07/23 I am a: Patient What is your living situation today?: I have a steady place to live Within the past 12 months, did the food you bought not last and you didn't have the money to get more?: Never true Within the past 12 months, did you worry whether your food would run out before you got money to buy more?: Never true Do you have trouble paying for medicines?: No Do you have trouble getting transportation to medical appointments?: No Do you have trouble paying your heating and electricity bill?: No Do you have trouble taking care of your child, family member or friend?: No Do you have trouble with day-to-day activities such as bathing, preparing meals, shopping, managing finances, etc.?: No Are you currently unemployed and looking for a job?: No Are you interested in more education?: No Please select the resources that you would like help with: Housing/Custodial Currently or been in a relationship where the following occur: No concerns reported THRIVE Score: 0 AUDIT C Alcohol Use Questionnaire (AUDIT-C) 1. How often do you have a drink containing alcohol?: Never 3. How often do you have six or more drinks on one occasion?: Never Total Score: 0 YAN-7 AMB Questionnaire YNA-7 Date YAN - 7 assessed: 12/07/23 Feeling nervous, anxious, or on edge: 0 = Not at all Not being able to stop or control worryin = Not at all Worrying too much about different things: 0 = Not at all Trouble relaxin = Not at all Being so restless that it is hard to sit still: 0 = Not at all Becoming easily annoyed or irritable: 0 = Not at all Feeling afraid as if something awful might happen: 0 = Not at all Total YAN-7 score (0-4 normal; 5-9 mild; 10-14 moderate; 15-21 severe): 0 Source: Developed by Drs. Federico Vale, Debra Good, Hill Hunter and colleagues, with an educational vamsi from [employer]. Review of Systems Const All systems reviewed & are unremarkable except as noted in HPI and below Eyes Reports no additional complaints ENT Reports no additional complaints Card Reports no additional complaints Resp Reports no additional complaints GI Reports no additional complaints Reports no additional complaints Physical exam (Primary Care) Vital Signs: Last Vital Signs Pulse 61 12/07/23 11:45 BP 124/68 12/07/23 11:45 Pulse Ox 97 12/07/23 11:45 Oxygen Delivery Method Room Air 12/07/23 11:45 BMI result Body Mass Index 19.6 Tobacco/Smoking Status: Tobacco use Status Tobacco use date assessed 12/07/23 12/07/23 11:56 Patient Tobacco Use Status Never used Tobacco 12/07/23 11:56 e-Cigarette/Vaping Use Never Used 12/07/23 11:45 PHQ-9: PHQ-9 Score PHQ-9: Total score 0 12/07/23 11:57 Depression Screening Interpretation: Negative Thrive Assessment: Date of Thrive Assessment Date Thrive assessed 12/07/23 12/07/23 11:56 Currently or been in a relationship where the following occur: No concerns reported Const General: no acute distress HENMT Face and sinus: Yes normal facial exam Neck Neck: Yes supple Resp Effort & Inspection: normal respiratory effort Auscultation: clear to auscultation bilaterally Cardio Rhythm: regular rhythm Heart sounds: S1 normal heart sound present and S2 normal heart sound present GI Inspection: Yes normal to inspection Palpation (GI): Soft to palpation Percussion: Yes normal to percussion Assessment and Plan Assessment & Plan (1) Hyperlipidemia: Code(s): E78.5 - Hyperlipidemia, unspecified Plan: Continue statin (2) HTN (hypertension): Code(s): I10 - Essential (primary) hypertension Plan: Continue atenolol return in 6 months (3) Vitamin D deficiency: Code(s): E55.9 - Vitamin D deficiency, unspecified Orders: Orders Comprehensive [place]. Panel Fast 6 Months E78.5 - Hyperlipidemia, unspecified, I10 - Essential (primary) hypertension Complete Blood Count Auto Diff 6 Months E78.5 - Hyperlipidemia, unspecified, I10 - Essential (primary) hypertension Lipid Panel 6 Months E78.5 - Hyperlipidemia, unspecified, I10 - Essential (primary) hypertension Vitamin D 25-OH Total 6 Months E55.9 - Vitamin D deficiency, unspecified, E78.5 - Hyperlipidemia, unspecified, I10 - Essential (primary) hypertension Coding Level of Care Code Est Pt Level 3 (21241) Diagnoses Hyperlipidemia E78.5 HTN (hypertension) I10 Vitamin D deficiency E55.9
== END 2023-12-07 12:38 | disposition home or self-care (01) ==
PROVIDERS: PCP Internal Medicine; Visit Provider Internal Medicine
DX: E78.5 Hyperlipidemia, unspecified (principal); I10 Essential (primary) hypertension; E55.9 Vitamin D deficiency, unspecified
CPT/HCPCS: 99213

== ENCOUNTER 2024-01-28 08:54 | Outpatient (REF) | payer MEDICARE, OTHER, SELFPAY ==
--- NOTE | ~2024-01-28 | MM_ITS ---
EXAMINATION: MM SCREENING DIGITAL BREAST TOMOSYNTHESIS, BILATERAL CLINICAL INFORMATION: Screening. Asymptomatic. COMPARISON: Mammography: Comparison is made with available priors TECHNIQUE: Digital breast mammography with tomosynthesis is performed in both the craniocaudal and mediolateral oblique views along with computer-aided detection (CAD). FINDINGS: There are scattered areas of fibroglandular density (ACR BI-RADS breast composition Category b). There are no significant masses, abnormal calcifications, or other abnormalities. MM/MM tomosynthesis screening BI IMPRESSION: No mammographic evidence of malignancy. ASSESSMENT: BI-RADS BI-RADS 1 - Negative RECOMMENDATION: Routine annual mammography screening. 1 year F/U This examination should not preclude the clinical evaluation of a suspicious palpable abnormality. This patient's information was entered into a reminder system with a target due date for their next mammogram. Electronically signed by: Ibis Landry DO 02/09/2024 01:51 PM EDT
== END 2024-01-28 08:55 | disposition home or self-care (01) ==
LOC: HO.MAMMO 08:54
PROVIDERS: PCP Internal Medicine; Visit Provider Internal Medicine
DX: Z12.31 Encounter for screening mammogram for malignant neoplasm of breast (principal)
CPT/HCPCS: 77063; 77067

== ENCOUNTER → 2024-01-28 09:15 | Outpatient (BNV) | payer MEDICARE, MEDICAID, SELFPAY | PROVIDERS: PCP Internal Medicine; Visit Provider Internal Medicine | DX: Z12.31 Encounter for screening mammogram for malignant neoplasm of breast (principal) | CPT/HCPCS: 77063; 77067 ==

== ENCOUNTER 2024-07-01 07:32 | Outpatient (REF) | payer MEDICARE, MEDICAID, SELFPAY ==
[2024-07-01 07:57] LABS: MANUAL DIFF FLAG NO
[2024-07-01 09:07] LABS: Basophils Percent Auto 0.5 % (0-2); Eosinophils Absolute Auto 0.3 X10*3/uL (0.0-0.4); Eosinophils Percent Auto 4.9 % (0-4); Hematocrit 43.4 % (37.0-47.0); Hemoglobin 14.8 g/dl (12.0-16.0); Imm Gran Abs Auto 0.06 X10*3/uL (0.00-0.03); Lymphocytes Absolute Auto 1.5 X10*3/uL (1.2-4.9); Lymphocytes Percent Auto 24.7 % (20-40); Mean Corpuscular HGB Conc 34.1 g/dl (31.0-35.0); Mean Corpuscular Hemoglobin 29.4 pg (27.0-33.0); Mean Corpuscular Volume 86.3 fL (80.0-98.0); Mean Platelet Volume 10.2 fL (9.4-12.3); Monocytes Absolute Auto 0.5 X10*3/uL (0.1-1.2); Monocytes Percent Auto 8.7 % (2-11); Neutrophils Absolute Auto 3.7 x10*3/uL (2.0-8.3); Neutrophils Percent Auto 60.2 % (45-73); Platelet Count 204 X10*3/uL (160-400); Red Blood Count 5.03 X10*6/uL (4.20-5.50); Red Cell Distribution Width 12.4 % (11.0-16.0); White Blood Count 6.1 X10*3/uL (4.8-10.8)
[2024-07-01 10:12] LABS: Alanine Aminotransferase 22 U/L (0-31); Albumin Level 4.2 g/dL (3.5-5.0); Alkaline Phosphatase 68 U/L (39-117); Anion Gap 13 (12-20); Aspartate Amino Transferase 22 U/L (5-31); Bilirubin Total 0.5 mg/dL (0.0-1.0); Blood Urea Nitrogen 19 mg/dL (9-16); Calcium 9.6 mg/dL (8.4-10.2); Carbon Dioxide 24 mmol/L (22-29); Chloride 108 mmol/L (96-108); Cholesterol 170 mg/dL (<200); Estimated Glomerular Filt Rate > 60; Glucose Fasting 83 mg/dL (60-99); HDL Cholesterol 47 mg/dL (>40); LDL Cholesterol Calculated 95 mg/dL (<100); Potassium 4.5 mmol/L (3.3-5.1); Sodium 140 mmol/L (135-145); Total Protein 7.3 g/dL (6.5-8.0); Triglycerides 142 mg/dL (<150)
[2024-07-01 10:31] LABS: Vitamin D 25-OH Total 39.1 ng/mL (>30)
== END 2024-07-01 07:33 | disposition home or self-care (01) ==
LOC: HO.LAB 07:32
PROVIDERS: PCP Internal Medicine; Visit Provider Internal Medicine
DX: E55.9 Vitamin D deficiency, unspecified (principal); I10 Essential (primary) hypertension; E78.5 Hyperlipidemia, unspecified
CPT/HCPCS: 36415; 80053; 80061; 82306; 85025

== ENCOUNTER 2024-07-05 08:06 | Outpatient (AMB) | payer MEDICARE, MEDICAID, SELFPAY ==
--- NOTE | 2024-07-05 08:21 | A.OFFVIS_ITS ---
Intake Vital Signs 07/05/24 08:31 Height 5 ft 1 in Weight 108 lb BMI 20.4 BP 118/66 Blood Pressure Location Lt brachial Position Sitting Respiration 18 Pulse 72 Pulse Source Pulse Oximeter Temp 98.0 F Temp Source Oral Pulse Oximetry (%) 99 Oxygen Delivery Method Room Air Intake Visit Reasons: AWV Allergies Penicillins [PENICILLINS] Allergy (Intermediate, Verified 07/05/24 08:32) HIVES Sulfa (Sulfonamide Antibiotics) [SULFA (SULFONAMIDE ANTIBIOTICS)] Allergy (Intermediate, Verified 07/05/24 08:32) HIVES HPI AWV HPI Details Initiated the conversation about Advanced Directives. Advanced Directives help? patients prepare for current and future decisions about their medical treatment? and place of care. Discussed with patient that it is a process where a patients? current condition and prognosis are reviewed, their wishes for information? regarding their illness are elicited, and likely medical dilemmas are presented? and options discussed. The form can be amended as needed, reviewed yearly and? make changes as needed Initiated the conversation about Advanced Directives. Advanced Directives help? patients prepare for current and future decisions about their medical treatment? and place of care. Discussed with patient that it is a process where a patients? current condition and prognosis are reviewed, their wishes for information? regarding their illness are elicited, and likely medical dilemmas are presented? and options discussed. The form can be amended as needed, reviewed yearly and? make changes as needed IPPE/AWV ? year old presents? for her ? Annual? Wellness Visit, initial visit.? Medical / Social History Reviewed? Past Medical History ?Yes? . ? [place]? of Care / Care Team list updated ?Yes . ? Surgical/Hospitalization? History ?Yes . ? Current Medications? (including OTC and supplements) ?Yes . ? Family History ?Yes? . ? Tobacco? Control form ?Yes . ? AUDIT-C (Alcohol use) form? ?Yes . ? Illicit drug use in Social? History ?Yes . ? Current diagnosis of? depression? ?No ? Appropriate PHQ2/PHQ9? completed ?Yes . ? 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 Fall Risk ? Fall? History? Have you had any falls with? injury in the past year? ?No . ? Have you had two or more? falls in the past year? ?No . ? Fall Risk Assessment: ?No? falls in the past year . ? HRA filled out by? the patient, reviewed by Provider and scanned. ? IPPE/AWV ? Balance? [place]? ?Yes . ? Tandem? walk ?Yes . ? Walk and? Turn ?Yes . ? Rise from? sit to stand ?Yes . ?Vision? Corrective? lens ?Yes ? Vision? screen ? Up-to-date, has an appointment [] for vision? screening and glaucoma screening ?Hearing? Whisper? test ?pass .? Initiated the conversation about Advanced Directives. Advanced Directives help? patients prepare for current and future decisions about their medical treatment? and place of care. Discussed with patient that it is a process where a patients? current condition and prognosis are reviewed, their wishes for information? regarding their illness are elicited, and likely medical dilemmas are presented? and options discussed. The form can be amended as needed, reviewed yearly and? make changes as needed Written? Plan?Completed. See Patient? Documents. PFSH Medical History Colon polyps Annual physical exam Neck pain Hemorrhagic stroke Osteoporosis Hyperlipidemia HTN (hypertension) Surgical History Hx of tonsillectomy Hx of colonoscopy Family History Father Heart problem Mother Hypertension Stroke Colon cancer Sister Breast cancer Maternal Grandfather Colon cancer Social History Housing: House Alcohol intake: never Patient Tobacco Use Status: Never used Tobacco e-Cigarette/Vaping Use: Never Used service: No Current occupational status: retired Cognitive needs: No Hearing needs: No Vision needs: Yes Questionnaire Medicare Wellness Checkup [age] What gender do you identify with?: female During the past 4 weeks, how much have you been bothered by emotional problems such as feeling anxious, depressed, irritable, sad or downhearted, and blue?: slightly During the past 4 weeks, has your physical & emotional health limited your soc ial activities with family, friends, neighbors, or groups?: not at all During the past 4 weeks, how much bodily pain have you generally had?: mild pain During the past 4 weeks, what was the hardest physical activity you could do for at least 2 minutes?: very heavy Can you get to places out of walking distance without help? (For eg., can you travel alone on buses, taxis or drive your car?): Yes Can you go shopping for groceries or clothes without someone's help?: Yes Can you prepare your own meals?: Yes Can you do your housework without help?: Yes Because of any health problems, do you need the help of another person with your personal care needs such as eating, bathing, dressing or getting around the house?: No Can you handle your own money without help?: Yes During the past 4 weeks, how would you rate your health in general?: very good During the past 4 weeks how have things been going for you?: pretty well Are you having difficulties driving your car?: no Do you always fasten your seat belt when you are in a car?: yes, usually During past 4 weeks, have you been bothered by the following: never: Falling or dizzy when standing up, Sexual problems?, Trouble eating well? and Problems using the telephone? and seldom: Teeth or denture problems? and Tiredness or fatigue? Have you fallen 2 or more times in the past year?: No Are you afraid of falling?: No Are you a smoker?: no During the past 4 weeks, how many drinks of wine, beer, or other alcoholic beverages did you have?: no alcohol at all Do you exercise for about 20 minutes 3 or more times a week?: yes, most of the time Have you been given information to help with the following?: no: Hazards in your house that might hurt you? and no: Keeping track of your medications? How often do you have trouble taking medicines the way you have been told to take them?: I always take medicine as prescribed How confident are you that you can control & manage most of your health problems?: very confident What is your race?: White Mini Mental State Exam (MMSE) Orientation What is the (year) (season) (date) (day) (month)?: year, season, date, day and month Where are we (state) (county) (town or city) (hospital) (floor)?: state, county, town or city, hospital/clinic and floor Registration Name of 3 unrelated objects clearly and slowly, then ask patient to repeat all 3 of them. (1st repeat determines score. Make sure they can repeat all three): object 1, object 2 and object 3 Attention & Calculation (CHOOSE ONE) Spell WORLD backwards (DLROW): 5 letters Recall Ask patient to repeat the 3 items from question #3.: object 1, object [address] 3 Language Show patient a wristwatch & ask what it is. Repeat for pencil.: watch and pencil Ask the patient to repeat the phrase 'No ifs, ands, or buts' after you.: correct Ask the patient to 'take a piece of paper with their right hand' 'fold paper in half' 'place paper on floor': take paper in right hand, fold paper in half and place paper on floor Print the sentence 'CLOSE YOUR EYES' on a piece. If patient actually closes eyes then score.: followed written direction Give patient a blank piece of paper & ask to write a sentence. Score if it contains a noun & verb.: sentence contains subject and verb Score Score: 29 PHQ-9 Over the last 2 weeks, how often have you been bothered by any of the following problems? 1. Little interest or pleasure in doing things: not at all 2. Feeling down, depressed, or hopeless: not at all 3. Trouble falling or staying asleep, or sleeping too much: not at all 4. Feeling tired or having little energy: not at all 5. Poor appetite or overeating: not at all 6. Feeling bad about yourself - or that you are a failure or have let yourself or your family down: not at all 7. Trouble concentrating on things, such as reading the newspaper or watching television: not at all 8. Moving or speaking so slowly that other people could have noticed. Or the opposite - being so fidgety or restless that you have been moving around a lot more than usual: not at all 9. Thoughts that you would be better off or of hurting yourself in some way: not at all Total score: 0 Depression Screening Interpretation: Negative Depression Screening Done: Yes 45047 - PHQ-9 Billing: Yes Source: Developed by Drs. Federico Vale, Debra Good, Hill Hunter and colleagues, with an educational vamsi from [email or web address]. Review of Systems Const All systems reviewed & are unremarkable except as noted in HPI and below Eyes Reports no additional complaints ENT Reports no additional complaints Card Reports no additional complaints Resp Reports no additional complaints GI Reports no additional complaints Reports no additional complaints Physical Exam Vital Signs: Last Vital Signs Temp 98.0 F 07/05/24 08:31 Pulse 72 07/05/24 08:31 Resp 18 07/05/24 08:31 BP 118/66 07/05/24 08:31 Pulse Ox 99 07/05/24 08:31 Oxygen Delivery Method Room Air 07/05/24 08:31 BMI result Body Mass Index 20.4 Const General: comfortable HEENT Head: Yes normal to inspection Ears: hearing grossly normal bilaterally and TM's normal bilaterally Eyes General: appearance normal, both eyes and all related structures Resp Effort & Inspection: normal respiratory effort Auscultation: clear to auscultation bilaterally Cardio Rhythm: regular rhythm Heart sounds: S1 normal heart sound present and S2 normal heart sound present GI Inspection: Yes normal to inspection Palpation (GI): Soft to palpation Percussion: Yes normal to percussion Auscultation: normal bowel sounds Extrem General: Yes no clubbing, cyanosis or edema Assessment & Plan Assessment & Plan (1) Annual physical exam: Code(s): Z00.00 - Encounter for general adult medical examination without abnormal findings Plan: Well-balanced diet regular physical activity discussed with the patient (2) Osteoporosis: Comment: DEXA in 09/2017, not better after 2years of Prolia, started Reclast 2017 DEXA 01/2020, severe body aches,declined 07/2020 Code(s): M81.0 - Age-related osteoporosis without current pathological fracture Plan: Continue vitamin-D and calcium supplement (3) HTN (hypertension): Code(s): I10 - Essential (primary) hypertension Plan: Continue current medication Quality Reporting (2019) Depression/Bipolar (159/160/161/177) PHQ-9: Total score: 0 Coding Level of Care Code Medicare Subsequent (G0439) Diagnoses Annual physical exam Z00.00 Osteoporosis M81.0 HTN (hypertension) I10 CPT Codes Advance Care Planning - Advance Care Planning discussion: On file, no changes ([id number]) Advance Care Planning - Time spent: 1-15 minutes, on File ([id number]) Additional Codes PHQ-9 - 87492 - PHQ-9 Billing: Yes ([id number]) Advance Care Planning Advance Care Planning discussion: On file, no changes Forms completed: Health Care Proxy Time spent: 1-15 minutes, on File Did not discuss due to Cultural/Spiritual beliefs: Yes
[2024-07-05 08:31] VITALS: BP 118/66; PULSE 72; RESP 18; TEMP 36.7; O2SAT 99; BMI 20.4
== END 2024-07-05 09:05 | disposition home or self-care (01) ==
PROVIDERS: PCP Internal Medicine; Visit Provider Internal Medicine
DX: Z00.00 Encounter for general adult medical examination without abnormal findings (principal); M81.0 Age-related osteoporosis without current pathological fracture; I10 Essential (primary) hypertension

== ENCOUNTER → 2024-07-05 08:06 | Outpatient (BNVA) | payer MEDICARE, OTHER, SELFPAY | PROVIDERS: PCP Internal Medicine; Visit Provider Internal Medicine | DX: Z00.00 Encounter for general adult medical examination without abnormal findings (principal); M81.0 Age-related osteoporosis without current pathological fracture; I10 Essential (primary) hypertension | CPT/HCPCS: 96127 ==